=== PATIENT | female | born 1990 | race Caucasian/White ===

== ENCOUNTER 2016-08-06 10:44 | Day surgery (SDC) | payer OTHER ==
[~2016-08-06] VITALS: Ht 171.4 cm; Wt 58.5 kg
[~2016-08-06 10:44] MED LIST: CITA10TA14 PO; CITA20TA11 PO; DICY20TA10 PO; FERR47.57 PO; Lactated Ringer's 1,000 ML IV ONE; NORE-96 PO; POLY17PO6 PO
[2016-08-06] MEDS ORDERED: fentaNYL-PF 50 mCg/mL 2 mL Inj ONE (10:45)
[2016-08-06] MEDS ORDERED: Propofol 10,000 mCg/mL 20 mL Inj ONE (10:45)
[2016-08-06 11:23] VITALS: BP 112/76; PULSE 70; RESP 15; O2SAT 92
[2016-08-06] MEDS ORDERED: CITA40TA13 PO (11:27)
--- NOTE | 2016-08-06 11:56 | PCM.HPANE ---
Patient Data Surgeon Admitting Provider: Attending Provider:Julio Sandoval MD Primary Care Physician:Barbara Sullivan ARNP Other Provider:Agustina Gomesingham Anesthesia Reason for Visit Iron Deficiency Anemia Ht/WT & BMI Body Mass Index Allergies Coded Allergies: hydrocodone bitartrate (Verified Allergy, Unknown, 08/06/13) Past Anesthesia History Anesthesia History: Denies:: Anesthesia Reactions, Difficult Intubation, Fam Anesthesia Reaction, Fam Malignant Hypertherm, Malignant Hyperthermia Diabetes History Hx Diabetes?: No MRSA MRSA: No Medications Reported Medications Citalopram 40 Mg Abgdyp72 Mg PO DAILY 30 Days Ref 0 08/06/16 Citalopram Hydrobromide (Celexa)10 Mg Shxtff87 Mg PO DAILY Ref 0 08/05/16 Polyethylene Glycol 3350 (Miralax)17 Gm Powd.pack17 Gm PO DAILY 05/16/16 Norethindrone A-E Estradiol (Loestrin)1 Each Tablet1 Each PO DAILY #1 PKG Ref 0 05/16/16 Discontinued Reported Medications Dicyclomine 20 Mg Sbiayt21 Mg PO QID PRN For GI Cramps Ref 0 05/17/16 Ferrous Sulfate (Slow Release Iron)47.5 Mg Tablet.er47.5 Mg PO every other day 05/16/16 Citalopram 20 Mg Baynwq33 Mg PO DAILY Ref 0 05/16/16 History History of ENT Problems?: Yes HEENT History: Denies:: Abnormal Airway Cataracts Difficult Intubation Dysphagia Glaucoma Hearing Problem Sinus Problem TMJ Denture Type: None Teeth Condition: Within Normal Limits Hx of Heart Problems?: Yes Cardiovascular History: Denies:: AICD Abdominal Aortic Aneurism Atrial Fibrillation Cardiac Surgery Chest Pain Congestive Heart Failure Coronary Artery Disease Edema Heart Murmur Hypertension Irregular Heartbeat Pacemaker Peripheral Vascular Rheumatic Fever Thrombophlebitis Valvular Heart Disease Hx of Respiratory Problem?: No Respiratory History: Denies:: Asthma COPD Chest Surgery Cough Dyspnea Emphysema Hemoptysis Oxygen Administration Pneumonia Pulmonary Embolism Tuberculosis Use of C-PAP Machine Use of Inhalers / NEBS Hx Neurologic Problems?: No Neurological History: Positive for:: Dizziness Headaches Denies:: CVA Hx of GI Problems?: Yes Hx of Problems?: Yes Female Hx: Denies:: Currently Hx Musculoskeletal Problems?: No Psycho Social History: Positive for:: Anxiety Hx Surgeries?: Yes (LEAP) Hx Any Other Health Problems?: No Hx Diabetes: No Hx Alcohol Use: Yes (1 drink /month)Hx Substance Use: No Stop/Bang Risk Assessment Category Category 1A: Patient has history of documented sleep apnea, and HAS NOT received any narcotic, sedative or anesthesia administration during this stay. Category 1B: Patient has history of documented sleep apnea, and HAS received any narcotic , sedative or anesthesia administration during this stay Category 2: Patient has SUSPECTED Obstructive Sleep Apnea, and HAS received any narcotic , sedative or anesthesia administration during this stay. Category 3: Patient has SUSPECTED Obstructive Sleep Apnea and HAS NOT received narcotic, sedative or anesthesia administration during this stay. Category 4: Outpatient in Procedural Areas with known sleep apnea or who screen positive for High Risk via the STOP/BANG questionnaire. Exam Exam General Appearance: Alert, Oriented X3, Cooperative, No Acute Distress HEENT/AIRWAY: MP 2 Lungs: Clear to Auscultation Heart: Exam Unremarkable Plan Impression Patient chart reviewed, patient interviewed and anesthestic plan with risks, benefits, and alternatives discussed, and informed consent obtained. ASA Physical Status: ASA1 Normal Healthy Anesthetic Plan: MAC Bene/Risks/Altern/Consents: Yes HP Complete Prior to Induction: Yes Raphael Raya MD Aug 06, 2016 09:52
[2016-08-06 12:12] VITALS: BP 104/66; PULSE 59; RESP 14; O2SAT 100
[2016-08-06 12:31] VITALS: BP 113/76; PULSE 60; RESP 16; O2SAT 100
--- NOTE | 2016-08-06 13:44 | ENDO ---
[address] [address] ENDOSCOPY PROCEDURE PATIENT: KENNETH SOTELO : 1990 MR#: [id number] ADMIT: 08/06/2016 JOB ID: [id number] DATE OF SERVICE: 08/06/2016 TYPE OF OPERATION: Esophagogastroduodenoscopy, biopsy, and colonoscopy. PREOPERATIVE DIAGNOSIS: Right upper quadrant pain, colonoscopy. POSTOPERATIVE DIAGNOSES: 1. Normal upper endoscopy, status post biopsy. 2. Normal colonoscopy. ANESTHESIA: Monitored anesthesia care. COMPLICATIONS: None. BLOOD LOSS: Minimal. DESCRIPTION OF PROCEDURE: After risks and benefits explained to the patient, informed consent was obtained. After anesthesia administered, upper endoscope was inserted in mouth intubating into the esophagus, stomach, second portion of duodenum. Mucosa carefully examined. After the procedure was done, the scope withdrawn, procedure terminated. Colonoscope was then inserted from the rectum to the terminal ileum and mucosa carefully examined. Prep of the patient was excellent. After procedure was done, the scope was withdrawn and the procedure terminated. FINDINGS: Upon inspection of the esophagus, the esophagus was normal without masses, ulcers, or lesions. Z-line located at 40 cm from incisors. Upon entering the stomach, stomach was normal without masses, ulcers, or lesions. Retroflexion of the duodenal bulb, first and second portion were normal. Biopsies taken of duodenum, antrum, body of stomach. Upon inspection of the anus, no masses, hemorrhoids, ulcers, or fissures that were seen. Throughout the entire examination, there were no polyps, masses, or lesions. Intubation of terminal was normal. Retroflexion was normal. IMPRESSIONS: Normal upper endoscopy, status post biopsy. Normal colonoscopy. RECOMMENDATIONS: Await pathology results. Follow up with GI clinic as needed.
--- NOTE | 2016-08-07 16:12 | PATH ---
SURGICAL PATHOLOGY Attending Physician:Julio Sandoval MD CASE STATUS: Signed Out PATIENT NAME: KENNETH SOTELO PID: [id number] : 1990 DATE COLLECTED:08/06/2016 16:08 SPECIMEN: 1: Duodenum, Biopsy 2: Stomach, Antrum, Biopsy 3: Gastric, Biopsy CLINICAL HISTORY: 1. DUODENUM BX 2. ANTRAL BX 3. GASTRIC BODY BX FINAL DIAGNOSIS: 1.DUODENUM BIOPSY: DUODENAL MUCOSA WITH NO DIAGNOSTIC ABNORMALITY. Negative for active inflammation, features of sprue, dysplasia, and malignancy. 2.ANTRAL BIOPSY: PORTIONS OF ANTRAL-TYPE GASTRIC MUCOSA WITH MILD CHRONIC GASTRITIS. Negative for H. pylori organisms by H&E stain. Negative for intestinal metaplasia and dysplasia. Immunohistochemistry studies pending; results will be reported as an addendum. 3.GASTRIC BIOPSY: PORTIONS OF GASTRIC BODY-TYPE MUCOSA WITH MILD CHRONIC GASTRITIS. Negative for intestinal metaplasia and dysplasia. Negative for intestinal metaplasia and dysplasia. Immunohistochemistry studies pending; results will be reported as an addendum. ICD10 K29.7 GROSS DESCRIPTION: Received are three formalin-filled containers, each labeled with the patient' s name. 1. Received in formalin, labeled with the patient' s name and "duodenum BX", are three fragments of riley, soft tissue ranging in size from less than 0.1 cm by less than 0.1 cm by less than 0.1 cm to 0.3 x 0.2 x 0.1 cm. All fragments are totally submitted in cassette 1A. 2. Received in formalin, labeled with the patient' s name and "antral BX", is one fragment of riley, soft tissue measuring 0.5 x 0.2 x 0.1 cm. The fragment is totally submitted in cassette 2A. 3. Received in formalin, labeled with the patient' s name and "gastric body BX", are three fragments of riley, soft tissue ranging in size from less than 0.1 cm by less than 0.1 cm by less than 0.1 cm to 0.1 x 0.1 x 0.1 cm. All fragments are totally submitted in cassette 3A. (RL:[id number]) MICRO DESCRIPTION: See diagnosis. ICD-9 CODES: CPT CODES: 1: 80834 2: 41756, 10408 3: 36456, 70841 PROCEDURE/ADDENDA: Immunohistochemistry SPI Interpretation {Not Entered} Results-Comments Immunohistochemistry Results: 2.ANTRAL BIOPSY: NEGATIVE FOR HELICOBACTER PYLORI BY IMMUNOHISTOCHEMISTRY. 3.GASTRIC BIOPSY: NEGATIVE FOR HELICOBACTER PYLORI BY IMMUNOHISTOCHEMISTRY. This test was developed and its performance characteristics determined by [facility]. It has not been cleared or approved by the [place]. Food and Drug Administration. The FDA has determined that such clearance or approval is not necessary. This test is used for clinical purposes. It should not be regarded as investigational or for research. Electronically Signed Out Angel Leblanc MD Electronically Signed Out Cristin Mix MD [facility] [address], [place] [address] Technical component performed at [facility], [facility] [address], [place], [address]
== END 2016-08-06 23:59 | disposition home or self-care (01) ==
LOC: END 10:44
PROVIDERS: ATTEND Internal Medicine Gastroenterology
DX: K29.50 Unspecified chronic gastritis without bleeding (principal); K59.00 Constipation, unspecified; D50.9 Iron deficiency anemia, unspecified; R10.11 Right upper quadrant pain; F90.9 Attention-deficit hyperactivity disorder, unspecified type; F41.9 Anxiety disorder, unspecified; N87.9 Dysplasia of cervix uteri, unspecified
CPT/HCPCS: 43239; 45378; J3010; J7120